=== PATIENT | female | born 1945 | race Caucasian/White ===

== ENCOUNTER 2017-07-28 15:26 | Outpatient (CLI) | payer MEDICARE, OTHER | END 2017-07-28 15:27 | disposition home or self-care (01) | LOC: D.MAMMO 15:26 | DX: Z12.31 Encounter for screening mammogram for malignant neoplasm of breast (principal) ==

== ENCOUNTER 2020-06-27 15:31 | Inpatient (IN) | payer MEDICARE, OTHER ==
[~2020-06-27] VITALS: Ht 160 cm; Wt 79.4 kg
[~2020-06-27 15:31] MED LIST: ADVAIR 250-501 EAC1 INH; ASPIRIN81 MG PO; COREG 3.1253.125 MG PO; FLORAJEN3 CAPS460 MG PO; FUROSEMIDE40 MG PO; GLUCOPHAGE500 MG PO; HTN MED?; IPRAT-ALBUT 0.5-3 ML INH; K-DUR20 MEQ PO; LASIX40 MG PO; LISINOPRIL10 MG PO; LISINOPRIL2.5 MG PO; MELATONIN 3 MG1 TAB PO; MUCINEX600 MG PO; OS-CAL500 MG PO; PREDNISONE10 MG PO; SYMBICORT 80-10.2 GM INH; TESSALON PERLE100 MG PO; VITAMIN C PO; VITAMIN D1000 UNI2 PO
[2020-06-27 16:08] LABS: BASOPHILS 0.1 % (0-2); EOSINOPHILS 0 % (0-7); HEMATOCRIT 35.9 % (36.0-48.0); HEMOGLOBIN 12.1 g/dL (12-16); IMMATURE GRANULOCYTES 0.1 % (0-5); LYMPHOCYTE ABS# 0.64 10x3/uL (1.18-3.74); LYMPHOCYTES 9.6 % (15-50); MCH 29.4 pg (26.0-34.0); MCHC 33.7 g/dL (31.0-37.0); MCV 87.1 fL (80.0-100.0); MEAN PLATELET VOLUME 9.4 fL (7.4-10.4); MONOCYTES 7.3 % (2-11); NEUTROPHIL ABS# 5.52 10x3/uL (1.56-6.13); NEUTROPHILS 82.9 % (40-80); PLATELET COUNT 192 10x3/uL (130-400); RBC 4.12 10x6/uL (4.00-5.40); RDW 13.1 % (11.5-14.5); WBC 6.7 10x3/uL (4.8-10.8)
[2020-06-27 16:19] LABS: APTT 33.5 SECONDS (22.8-39.4); INR 1.6 (0.85-1.17); PROTIME 17.7 SECONDS (11.6-15.0)
[2020-06-27 16:33] LABS: CALC OSMOLALITY 276 mosm/kg (275-300); CALCIUM 8.7 mg/dL (8.5-10.1); CARBON DIOXIDE 25.4 mmol/L (21.0-32.0); CHLORIDE - SERUM 100 mmol/L (98-107); GLUCOSE 108 mg/dL (74-106); POTASSIUM - SERUM 3.7 mmol/L (3.5-5.1); SODIUM 137 mmol/L (136-145); UREA NITROGEN 19 mg/dL (7-18); eGFR NON AFRICAN AMERICAN 57 mL/min (90-120)
[2020-06-27 16:54] LABS: ALBUMIN 3.4 g/dL (3.4-5.0); ALKALINE PHOSPHATASE 70 U/L (30-120); ALT (SGPT) 28 U/L (10-68); BILIRUBIN - TOTAL 0.81 mg/dL (0.2-1.3); CKMB 3.4 U/L (0.0-3.6); PROTEIN - SERUM 6.9 g/dL (6.4-8.2)
[2020-06-27 16:57] LABS: CREATINE KINASE 1905 UL (21-215)
[2020-06-27 17:02] LABS: BILIRUBIN NEGATIVE (NEGATIVE); KETONE NEGATIVE (NEGATIVE); NITRITE NEGATIVE (NEGATIVE); UROBILINOGEN NORMAL mg/dL (< 2)
[2020-06-27 17:03] LABS: TROPONIN-I 0.359 ng/mL (0.000-0.060)
[2020-06-27] MEDS ORDERED: WARFARIN SODIUM3 MG PO (20:06)
[2020-06-27 23:23] LABS: CKMB 2.7 U/L (0.0-3.6)
[2020-06-27 23:26] LABS: CREATINE KINASE 1933 UL (21-215)
[2020-06-27 23:27] LABS: TROPONIN-I 0.403 ng/mL (0.000-0.060)
[2020-06-28 01:13] VITALS: BP 176/96; BMI 31.0
[2020-06-28 04:12] LABS: BASOPHILS 0.2 % (0-2); EOSINOPHILS 0 % (0-7); HEMATOCRIT 36.2 % (36.0-48.0); HEMOGLOBIN 12.1 g/dL (12-16); IMMATURE GRANULOCYTES 0.2 % (0-5); LYMPHOCYTE ABS# 0.81 10x3/uL (1.18-3.74); LYMPHOCYTES 17.6 % (15-50); MCH 29.3 pg (26.0-34.0); MCHC 33.4 g/dL (31.0-37.0); MCV 87.7 fL (80.0-100.0); MONOCYTES 12.4 % (2-11); NEUTROPHIL ABS# 3.21 10x3/uL (1.56-6.13); NEUTROPHILS 69.6 % (40-80); PLATELET COUNT 193 10x3/uL (130-400); RBC 4.13 10x6/uL (4.00-5.40)
[2020-06-28 04:18] LABS: WBC 4.6 10x3/uL (4.8-10.8)
[2020-06-28 04:20] LABS: ALBUMIN 2.8 g/dL (3.4-5.0); ALKALINE PHOSPHATASE 58 U/L (30-120); BILIRUBIN - TOTAL 0.63 mg/dL (0.2-1.3); CALCIUM 8.5 mg/dL (8.5-10.1); CARBON DIOXIDE 27.6 mmol/L (21.0-32.0); CHLORIDE - SERUM 104 mmol/L (98-107); CKMB 2.1 U/L (0.0-3.6); GLUCOSE 95 mg/dL (74-106); MAGNESIUM - SERUM 1.9 mg/dL (1.8-2.4); PHOSPHOROUS 3.8 mg/dL (2.5-4.9); POTASSIUM - SERUM 3.5 mmol/L (3.5-5.1); PRO BNP 6962 pg/mL (0-125); PROTEIN - SERUM 6.5 g/dL (6.4-8.2); SODIUM 139 mmol/L (136-145)
[2020-06-28 04:27] LABS: ALT (SGPT) 18 U/L (10-68); CALC OSMOLALITY 278 mosm/kg (275-300); CREATINE KINASE 1559 UL (21-215); CREATININE - SERUM 0.7 mg/dL (0.6-1.3); TROPONIN-I 0.422 ng/mL (0.000-0.060); UREA NITROGEN 14 mg/dL (7-18); eGFR NON AFRICAN AMERICAN 87 mL/min (90-120)
[2020-06-28 06:15] VITALS: BP 157/57
--- NOTE | 2020-06-28 07:13 | NUR ---
RECEIVE SHIFT REPORT. RESTING IN BED WITH EYES CLOSED. NO S/S OF DISTRESS PRESENT AT THIS TIME. ON 2L NC. CALL LIGHT IN REACH. WILL CONTINUE POC AND SAFETY PRECAUTIONS.
[2020-06-28 10:41] LABS: CKMB 1.9 U/L (0.0-3.6)
[2020-06-28 10:42] LABS: CREATINE KINASE 1261 UL (21-215)
[2020-06-28 10:46] LABS: TROPONIN-I 0.367 ng/mL (0.000-0.060)
[2020-06-28 11:00] VITALS: BP 129/50
[2020-06-28 12:58] VITALS: Ht 160 cm; Wt 79.4 kg
--- NOTE | 2020-06-28 19:35 | NUR ---
PATIENT LYING IN BED. NO S/S OF DISTRESS. CLIR. BED IN LOWEST POSITION. DENIES ANY NEEDS OR CONCERNS AT THIS TIME. WILL CONT TO MONITOR.
[2020-06-28 21:03] VITALS: BP 157/66
--- NOTE | 2020-06-28 23:43 | NUR ---
RESTING WITH EYES CLOSED. BLOOD GLUCOSE 107. CLIR. BED IN LOWEST POSITION. WILL CONT TO MONITOR.
[2020-06-29 00:08] VITALS: BP 144/54
[2020-06-29 04:00] VITALS: BP 155/70
[2020-06-29 04:44] LABS: BASOPHILS 0.2 % (0-2); EOSINOPHILS 0.8 % (0-7); HEMATOCRIT 33.5 % (36.0-48.0); HEMOGLOBIN 11.4 g/dL (12-16); IMMATURE GRANULOCYTES 0.2 % (0-5); LYMPHOCYTE ABS# 1.27 10x3/uL (1.18-3.74); LYMPHOCYTES 24.9 % (15-50); MCH 29.9 pg (26.0-34.0); MCV 87.9 fL (80.0-100.0); MEAN PLATELET VOLUME 9.9 fL (7.4-10.4); MONOCYTES 13.7 % (2-11); NEUTROPHIL ABS# 3.08 10x3/uL (1.56-6.13); NEUTROPHILS 60.2 % (40-80); PLATELET COUNT 193 10x3/uL (130-400); RBC 3.81 10x6/uL (4.00-5.40); RDW 13.1 % (11.5-14.5); WBC 5.1 10x3/uL (4.8-10.8)
[2020-06-29 05:04] LABS: CALC OSMOLALITY 275 mosm/kg (275-300); CALCIUM 8.3 mg/dL (8.5-10.1); CARBON DIOXIDE 27.7 mmol/L (21.0-32.0); CHLORIDE - SERUM 105 mmol/L (98-107); CREATININE - SERUM 0.6 mg/dL (0.6-1.3); GLUCOSE 109 mg/dL (74-106); PHOSPHOROUS 3.6 mg/dL (2.5-4.9); POTASSIUM - SERUM 3.5 mmol/L (3.5-5.1); SODIUM 138 mmol/L (136-145); UREA NITROGEN 11 mg/dL (7-18); eGFR NON AFRICAN AMERICAN > 90 mL/min (90-120)
[2020-06-29 05:41] LABS: PROTIME 14.4 SECONDS (11.6-15.0)
[2020-06-29 05:43] LABS: INR 1.23 (0.85-1.17)
--- NOTE | 2020-06-29 07:15 | NUR ---
RECEIVE SHIFT REPORT. RESTING IN BED WITH EYES CLOSED. AROUSES TO SPEECH. DENIES ANY NEEDS AT THIS TIME. CALL LIGHT IN REACH. CONTINUE POC AND SAFETY PRECAUTIONS.
[2020-06-29 07:31] VITALS: BP 154/63
[2020-06-29 13:57] VITALS: BP 146/64
--- NOTE | 2020-06-29 17:22 | NUR ---
RESTING IN BED. STATES SHE IS TIRED AND READY TO GO HOME. DENIES ANY OTHER NEEDS AT THIS TIME.
--- NOTE | 2020-06-29 19:30 | NUR ---
LYING IN BED WATCHING TV. NO S/S OF DISTRESS. EXCITED TO GO HOME IN THE MORNING. ASSESSMENT COMPLETE. CLIR. BED IN LOWEST POSITION. WILL CONT TO MONITOR.
--- NOTE | 2020-06-29 23:00 | NUR ---
SLEEPING. CLIR. BED IN LOWEST POSITION. WILL CONT TO MONITOR.
[2020-06-30 06:32] LABS: BASOPHILS 0.5 % (0-2); EOSINOPHILS 3.4 % (0-7); HEMATOCRIT 36.1 % (36.0-48.0); IMMATURE GRANULOCYTES 0.2 % (0-5); LYMPHOCYTE ABS# 1.67 10x3/uL (1.18-3.74); LYMPHOCYTES 40.2 % (15-50); MCH 29.2 pg (26.0-34.0); MCHC 33.2 g/dL (31.0-37.0); MCV 87.8 fL (80.0-100.0); MEAN PLATELET VOLUME 9.9 fL (7.4-10.4); MONOCYTES 12.3 % (2-11); NEUTROPHILS 43.4 % (40-80); RBC 4.11 10x6/uL (4.00-5.40); WBC 4.2 10x3/uL (4.8-10.8)
[2020-06-30 06:36] LABS: PLATELET COUNT 235 10x3/uL (130-400)
[2020-06-30 07:02] LABS: CALC OSMOLALITY 282 mosm/kg (275-300); CARBON DIOXIDE 27.7 mmol/L (21.0-32.0); CHLORIDE - SERUM 107 mmol/L (98-107); CREATININE - SERUM 0.6 mg/dL (0.6-1.3); GLUCOSE 105 mg/dL (74-106); MAGNESIUM - SERUM 1.9 mg/dL (1.8-2.4); PHOSPHOROUS 4.1 mg/dL (2.5-4.9); POTASSIUM - SERUM 3.8 mmol/L (3.5-5.1); SODIUM 142 mmol/L (136-145); UREA NITROGEN 12 mg/dL (7-18); eGFR NON AFRICAN AMERICAN > 90 mL/min (90-120)
[2020-06-30 07:23] LABS: INR 1.62 (0.85-1.17); PROTIME 17.9 SECONDS (11.6-15.0)
[2020-06-30] MEDS ORDERED: FEXOFENADINE HC60 MG PO (08:54)
[2020-06-30] MEDS ORDERED: TESSALON PERLE100 MG PO (08:55)
[2020-06-30] MEDS ORDERED: PROTONIX40 MG PO (08:55)
[2020-06-30] MEDS ORDERED: VITAMIN D325 MC1 PO (08:55)
[2020-06-30] MEDS ORDERED: ZINC-220220 MG PO (08:55)
[2020-06-30] MEDS ORDERED: MELATONIN 3 MG1 TAB PO (08:56)
[2020-06-30] MEDS ORDERED: VITAMIN C500 M1 PO (08:56)
[2020-06-30 09:37] VITALS: BP 170/67
--- NOTE | 2020-06-30 11:12 | NUR ---
PROVIDED VERBAL AND WRITTEN DISCHARGE TEACHING TO PT, WHO VERBALIZED UNDERSTANDING REGARDING TEACHING. PT WAITING ON RIDE, WILL NOTIFY NURES WHEN READY FOR WHEELCHAIR.
--- NOTE | 2020-06-30 11:31 | NUR ---
BLOOD SUGAR OF 138, NO COVERAGE NEEDED PER S/S.
--- NOTE | 2020-06-30 12:30 | NUR ---
PT LEFT UNIT VIA WHEELCHAIR, WITH ALL BELONGINGS, NAD NOTED.
--- NOTE | 2020-06-30 17:32 | MORECARE ---
CASE MANAGEMENT DISCHARGE SUMMARY PATIENT: MEKA RIVERA UNIT: [id number] ADM DATE: 06/28/20 AGE: 74 : 45 SEX: F ROOM/BED: [facility] AUTHOR: GLENN,DOC PHYSICIAN: REFERRING PHYSICIAN: EULALIA CATHERINE MD DATE OF SERVICE: 06/30/20 Case Management Discharge Planning Summary DCP REVIEW SUMMARY ANTICIPATED D/C DATE: 06/30/2020 EXPECTED LOS : 2 CASE STATUS: DCP Initiated INITIAL REVIEW: 06/27/2020 INITIAL REVIEWER: Milan Turcios FINAL DISCHARGE DISPOSITION: : FINAL REVIEWER: FINAL REVIEW DATE: DCP Focus Questions & Answers - Added on: QUESTION: ANSWER : PATIENT: MEKA RIVERA ENCOUNTER: [id number] MEDICAL RECORD#: [id number] ADMISSION DATE: 06/28/2020 DISCHARGE DATE: 06/30/2020 ATTENDING MD: EULALIA HARRIS : AGE: 74 MARITAL STATUS: M DC PLAN ID: [id number] FACILITY: [facility] PRINTED ON: 06/30/20 17:32 CT All edits/amendments must be made on the electronic document DICTATION DATE: 06/30/201731 PLUNKET NURSE: BUCK 06/30/201731 RPT#: [id number] DC DATE:06/30/20 STATUS: DIS IN [facility] [address] [place] [address] END OF REPORT
--- NOTE | 2020-06-30 17:42 | MORECARE ---
CASE MANAGEMENT DISCHARGE SUMMARY PATIENT: MEKA RIVERA UNIT: [id number] ADM DATE: 06/28/20 AGE: 74 : 45 SEX: F ROOM/BED: D.3143 AUTHOR: GUNNER ELIZABETH PHYSICIAN: REFERRING PHYSICIAN: EULALIA CATHERINE MD DATE OF SERVICE: 06/30/20 Case Management Discharge Planning Summary COMMENTS ENTERED DATE: 06/30/20 17:38 CT COMMENT TYPE: Discharge Planning REVIEWER: Milan Turcios Home no needs. CM met with patient to complete DC plan and to evaluate needs. Patient stated that she lives independently with family. At discharge, the patient plans to return home and feels this is a safe discharge. CM discussed availability of home health, rehab services, and medical equipment. Patient stated that she has a walker. Patient declined HHS, SNF, IPR, and DME. Patient voiced no other needs at this time and is satisfied with DC plan. Transportation provider at discharge will be with her , Pelon ([phone]). DC IMM delivered, explained, signed by the patient, and placed in chart. Signed form also left with the patient. CM will continue to follow and will assist as needed with dc plans/needs. DCP REVIEW SUMMARY ANTICIPATED D/C DATE: 06/30/2020 EXPECTED LOS : 2 CASE STATUS: DCP Initiated INITIAL REVIEW: 06/27/2020 INITIAL REVIEWER: Milan Turcios FINAL DISCHARGE DISPOSITION: : FINAL REVIEWER: FINAL REVIEW DATE: DCP Focus Questions & Answers DCP REV -DCP Review Added on: 06/30/20 5:36 pm QUESTION: ANSWER DCP Evaluation Patient gives permission to discuss discharge plans with: (name, relationship and number) : PELON RIVERA (spouse) [phone] Partial Dependence, assistance required for: : Ambulation / Mobility Baseline cognitive status: : *Oriented to person, place, situation, time and present Patient's ability to cope with chronic illness : d. No chronic illness Medication Management: : Patient states can afford medications Pharmacy name(s): : [facility] Does Patient have transportation to get home and to follow-up medical appointments when discharged from the hospital? : Yes Does the patient have electricity at home? : Yes Does the patient have running water in their house? : Yes Equipment in use: : Walker - Rolling Mental health screen: : No mental health history Patient's current cognitive status: : *Oriented to person, place, situation, time and present Functional screen assessment: : Basic needs can adequately be met by self Patient with capacity for self-care or can be cared for in same environment as prior to hospitalization? : Yes Does the patient have the ability to pay for or attain post discharge needs / services? : Yes Is there a likelihood that the patient will require additional services to return to the preadmission environment? : No Patient and/or caregiver agree upon recommended discharge plan? : Yes Equipment needed for post hospitalization: : None Physical environment modification needed / anticipated for discharge: : No Planned post hospital services available for patient? : No Would patient like to participate in any Care Coordination programs (if applicable): : Not applicable DCP Re-evaluation Would patient like to participate in any Care Coordination programs (if applicable): : Not applicable PATIENT: MEKA RIVERA ENCOUNTER: [id number] MEDICAL RECORD#: [id number] ADMISSION DATE: 06/28/2020 DISCHARGE DATE: 06/30/2020 ATTENDING MD: EULALIA HARRIS : AGE: 74 MARITAL STATUS: M DC PLAN ID: [id number] FACILITY: [facility] PRINTED ON: 06/30/20 17:42 CT All edits/amendments must be made on the electronic document DICTATION DATE: 06/30/201741 INFORMATICS CONSULTANT: BUCK 06/30/201741 RPT#: [id number] DC DATE:06/30/20 STATUS: DIS IN [facility] [address] [place] [address] END OF REPORT
--- NOTE | 2020-06-30 17:54 | MORECARE ---
CASE MANAGEMENT DISCHARGE SUMMARY PATIENT: MEKA RIVERA UNIT: [id number] ADM DATE: 06/28/20 AGE: 74 : 45 SEX: F ROOM/BED: D.9003 AUTHOR: GUNNER ELIZABETH PHYSICIAN: REFERRING PHYSICIAN: EULALIA CATHERINE MD DATE OF SERVICE: 06/30/20 Case Management Discharge Planning Summary COMMENTS ENTERED DATE: 06/30/20 17:38 CT COMMENT TYPE: Discharge Planning REVIEWER: Milan Turcios Home no needs. CM met with patient to complete DC plan and to evaluate needs. Patient stated that she lives independently with family. At discharge, the patient plans to return home and feels this is a safe discharge. CM discussed availability of home health, rehab services, and medical equipment. Patient stated that she has a walker. Patient declined HHS, SNF, IPR, and DME. Patient voiced no other needs at this time and is satisfied with DC plan. Transportation provider at discharge will be with her , Pelon ([phone]). DC IMM delivered, explained, signed by the patient, and placed in chart. Signed form also left with the patient. CM will continue to follow and will assist as needed with dc plans/needs. Appended by Milan Turcios on 06/30/2020 17:42 CDT: Patient stated that her PCP is Dr. Bright DCP REVIEW SUMMARY ANTICIPATED D/C DATE: 06/30/2020 EXPECTED LOS : 2 CASE STATUS: DCP Initiated INITIAL REVIEW: 06/27/2020 INITIAL REVIEWER: Milan Turcios FINAL DISCHARGE DISPOSITION: : FINAL REVIEWER: FINAL REVIEW DATE: DCP Focus Questions & Answers DCP REV -DCP Review Added on: 06/30/20 5:36 pm QUESTION: ANSWER DCP Evaluation Patient gives permission to discuss discharge plans with: (name, relationship and number) : PELON RIVERA (spouse) [phone] Partial Dependence, assistance required for: : Ambulation / Mobility Baseline cognitive status: : *Oriented to person, place, situation, time and present Patient's ability to cope with chronic illness : d. No chronic illness Medication Management: : Patient states can afford medications Pharmacy name(s): : [facility] Does Patient have transportation to get home and to follow-up medical appointments when discharged from the hospital? : Yes Does the patient have electricity at home? : Yes Does the patient have running water in their house? : Yes Equipment in use: : Walker - Rolling Mental health screen: : No mental health history Patient's current cognitive status: : *Oriented to person, place, situation, time and present Functional screen assessment: : Basic needs can adequately be met by self Patient with capacity for self-care or can be cared for in same environment as prior to hospitalization? : Yes Does the patient have the ability to pay for or attain post discharge needs / services? : Yes Is there a likelihood that the patient will require additional services to return to the preadmission environment? : No Patient and/or caregiver agree upon recommended discharge plan? : Yes Equipment needed for post hospitalization: : None Physical environment modification needed / anticipated for discharge: : No Planned post hospital services available for patient? : No Would patient like to participate in any Care Coordination programs (if applicable): : Not applicable DCP Re-evaluation Would patient like to participate in any Care Coordination programs (if applicable): : Not applicable PATIENT: MEKA RIVERA ENCOUNTER: [id number] MEDICAL RECORD#: [id number] ADMISSION DATE: 06/28/2020 DISCHARGE DATE: 06/30/2020 ATTENDING MD: EULALIA HARRIS : AGE: 74 MARITAL STATUS: M DC PLAN ID: [id number] FACILITY: [facility] PRINTED ON: 06/30/20 17:53 CT All edits/amendments must be made on the electronic document DICTATION DATE: 06/30/201752 SLITTING MACHINE OPERATOR: BUCK 06/30/201752 RPT#: [id number] DC DATE:06/30/20 STATUS: DIS IN [facility] [address] [place] [address] END OF REPORT
--- NOTE | 2020-07-02 16:00 | EC ---
PATIENT:MEKA RIVERA DATE OF SERVICE: 06/27/20 SEX: F MEDICAL RECORD: [id number] DATE OF : 45 LOCATION:D.M2 D.212 AGE OF PATIENT: 74 ADMISSION DATE: 06/28/20 REFERRING PHYSICIAN: INTERPRETING PHYSICIAN: RADHA MELISSA MD ECHOCARDIOGRAM REPORT ECHO CHARGES 4 ECHO COMPLETE Date: 06/28/20 CLINICAL DIAGNOSIS: TAVR ECHOCARDIOGRAPHIC MEASUREMENTS (adult normal given) AC root (d.<3.7cm) 1.9 cm LV Septum d (<1.2 cm> 1.4 cm Valve Excursion 1.1 cm LV Septum (systole) 2.0 cm Left Atria (s.<4.0cm> 5.2 cm LVPW d(<1.2cm) 1.3 cm RV (d.<2.3cm) 3.6 cm LVPW (sytole) 1.6 cm LV diastole(<5.6CM) 4.8 cm MV E-F(>70mm/sec) cm LV systole 3.5 cm LVOT Diameter 1.5 cm MV exc.(>10mm) 1.2 cm Est.ejection fraction (50-75%) % DOPPLER: LVIT cm/sec A 134 cm/sec E 105 cm/sec LA cm/sec RVSP 59 mmHg LVOT 146 cm/sec AOP1/2T m/s Asc. Ao 378 cm/sec RVOT 72 cm/sec RA cm/sec PA 144 cm/sec AV Gradient Peak 57.3 mmHg AV Mean 36.5 mmHg AV Area 0.7 cm MV Gradient Peak 9.2 mmHg MV Mean 6.5 mmHg MV Area cm COMMENTS: Roustabout Crew Pusher: 5 SIGIFREDO GAUTHIER Edger Automatic: 3 Dr. Moran TAPE# Pericardial Effusion N DATE OF SERVICE: Adequate 2D, color-flow imaging, spectral Doppler, and M-Mode FINDINGS: LVH is present. LV internal dimensions are normal. LV may show mild septal hypokinesis. Overall, LV function, however, is only lower limits of normal to mildly reduced at 45-50%. The patient is status post TAVR. There are elevated velocities at 57 mmHg. No significant AI. Left atrium is dilated at 5.2 cm. Mitral valve shows no prolapse. Trace MR. Right side is grossly normal. Mild TR. ECHOCARDIOGRAM REPORT [id number] MEKA RIVERA TRANSINT:[id number] Voice Confirmation ID: [id number] DOCUMENT ID: [id number] RADHA MELISSA MD at 1600 CC: [id number] DICTATION DATE: 06/28/20 1356 MOLECULAR SPECTROSCOPIST: 06/28/20 1526 DIS IN 06/30/20 [place] [id number] [place] [id number]
--- NOTE | 2020-07-03 06:51 | MORECARE ---
CASE MANAGEMENT DISCHARGE SUMMARY PATIENT: MEKA RIVERA UNIT: [id number] ADM DATE: 06/28/20 AGE: 74 : 45 SEX: F ROOM/BED: D.8223 AUTHOR: GUNNER ELIZABETH PHYSICIAN: REFERRING PHYSICIAN: EULALIA CATHERINE MD DATE OF SERVICE: 07/03/20 Case Management Discharge Planning Summary COMMENTS ENTERED DATE: 06/30/20 17:38 CT COMMENT TYPE: Discharge Planning REVIEWER: Milan Turcios Home no needs. CM met with patient to complete DC plan and to evaluate needs. Patient stated that she lives independently with family. At discharge, the patient plans to return home and feels this is a safe discharge. CM discussed availability of home health, rehab services, and medical equipment. Patient stated that she has a walker. Patient declined HHS, SNF, IPR, and DME. Patient voiced no other needs at this time and is satisfied with DC plan. Transportation provider at discharge will be with her , Pelon ([phone]). DC IMM delivered, explained, signed by the patient, and placed in chart. Signed form also left with the patient. CM will continue to follow and will assist as needed with dc plans/needs. Appended by Milan Turcios on 06/30/2020 17:42 CDT: Patient stated that her PCP is Dr. Bright DCP REVIEW SUMMARY ANTICIPATED D/C DATE: 06/30/2020 EXPECTED LOS : 2 CASE STATUS: DCP Initiated INITIAL REVIEW: 06/27/2020 INITIAL REVIEWER: Milan Turcios FINAL DISCHARGE DISPOSITION: : FINAL REVIEWER: FINAL REVIEW DATE: DCP Focus Questions & Answers DCP REV -DCP Review Added on: 06/30/20 5:36 pm QUESTION: ANSWER DCP Evaluation Patient gives permission to discuss discharge plans with: (name, relationship and number) : PELON RIVERA (spouse) [phone] Partial Dependence, assistance required for: : Ambulation / Mobility Baseline cognitive status: : *Oriented to person, place, situation, time and present Patient's ability to cope with chronic illness : d. No chronic illness Medication Management: : Patient states can afford medications Pharmacy name(s): : [facility] Does Patient have transportation to get home and to follow-up medical appointments when discharged from the hospital? : Yes Does the patient have electricity at home? : Yes Does the patient have running water in their house? : Yes Equipment in use: : Walker - Rolling Mental health screen: : No mental health history Patient's current cognitive status: : *Oriented to person, place, situation, time and present Functional screen assessment: : Basic needs can adequately be met by self Patient with capacity for self-care or can be cared for in same environment as prior to hospitalization? : Yes Does the patient have the ability to pay for or attain post discharge needs / services? : Yes Is there a likelihood that the patient will require additional services to return to the preadmission environment? : No Patient and/or caregiver agree upon recommended discharge plan? : Yes Equipment needed for post hospitalization: : None Physical environment modification needed / anticipated for discharge: : No Planned post hospital services available for patient? : No Would patient like to participate in any Care Coordination programs (if applicable): : Not applicable DCP Re-evaluation Would patient like to participate in any Care Coordination programs (if applicable): : Not applicable PATIENT: MEKA RIVERA ENCOUNTER: [id number] MEDICAL RECORD#: [id number] ADMISSION DATE: 06/28/2020 DISCHARGE DATE: 06/30/2020 ATTENDING MD: EULALIA HARRIS : AGE: 74 MARITAL STATUS: M DC PLAN ID: [id number] FACILITY: [facility] PRINTED ON: 07/03/20 6:51 CT All edits/amendments must be made on the electronic document DICTATION DATE: 07/03/20649 DIRECTOR OF EDUCATION: BUCK 07/03/2050 RPT#: [id number] DC DATE:06/30/20 STATUS: DIS IN [facility] [address] [place] [address] END OF REPORT
== END 2020-06-30 12:30 | disposition home or self-care (01) | DRG 291 ==
LOC: D.ER 15:31 → OBSVTIME 17:57 → D.M2 17:57
PROVIDERS: Family Medicine; ADMIT Emergency Medicine; ATTEND Emergency Medicine
DX: I11.0 Hypertensive heart disease with heart failure (principal); G93.41 Metabolic encephalopathy; I50.23 Acute on chronic systolic (congestive) heart failure; I42.0 Dilated cardiomyopathy; E78.5 Hyperlipidemia, unspecified; M54.16 Radiculopathy, lumbar region; E11.9 Type 2 diabetes mellitus without complications; T46.5X1A Poisoning by other antihypertensive drugs, accidental (unintentional), initial encounter; T46.1X1A Poisoning by calcium-channel blockers, accidental (unintentional), initial encounter; R62.7 Adult failure to thrive; Z86.16 Personal history of COVID-19; Z79.01 Long term (current) use of anticoagulants; Z95.0 Presence of cardiac pacemaker; Z68.31 Body mass index [BMI] 31.0-31.9, adult; Z87.820 Personal history of traumatic brain injury